=== PATIENT | female | born 1980 | race Caucasian/White ===

== ENCOUNTER 2018-09-20 00:09 | Inpatient (IN) | payer MEDICAID ==
[~2018-09-20] VITALS: Ht 162.6 cm; Wt 84.3 kg
[2018-09-20 00:38] VITALS: Ht 162.6 cm; Wt 84.3 kg
[2018-09-20] MEDS ORDERED: LACTATED RINGER'S 1,000 ML IV PRN (00:42)
[2018-09-20] MEDS ORDERED: CARBOPROST 250 MCG INJ IM PRN ×2 (01:00→14:30)
[2018-09-20] MEDS ORDERED: LIDOCAINE 1% (MPF) 30 ML INJ INJ PRN (01:00)
[2018-09-20] MEDS ORDERED: BUTORPHANOL 2 MG INJ IV PRN (01:00)
[2018-09-20] MEDS ORDERED: OXYTOCIN 30 UNITS/LR 500 ML IV PRN ×2 (01:00→14:30)
[2018-09-20] MEDS ORDERED: MISOPROSTOL 200 MCG TAB PR PRN ×2 (01:00→14:30)
[2018-09-20] MEDS ORDERED: METHYLERGONOVINE 0.2 MG INJ IM PRN ×2 (01:00→14:30)
[2018-09-20] MEDS ORDERED: OXYTOCIN 30 UNITS/LR 500 ML IV SCH ×2 (01:00)
[2018-09-20] MEDS ORDERED: IBUPROFEN 600 MG TAB PO PRN (01:00)
[2018-09-20] MEDS ORDERED: MISOPROSTOL 50 MCG CAPSULE VAG ONE (01:00)
[2018-09-20 01:30] VITALS: BP 126/81; PULSE 68; RESP 20
[2018-09-20] MEDS: LACTATED RINGER'S 1,000 ML IV SCH ×2 (01:58→07:39)
[2018-09-20] MEDS ORDERED: MISOPROSTOL 50 MCG CAPSULE PO PRN (02:30)
[2018-09-20] MEDS: MISOPROSTOL 50 MCG CAPSULE PO PRN ×2 (03:19→07:39)
[2018-09-20] MEDS ORDERED: MINERAL OIL LIGHT 10 ML VIAL TOP ONE (11:00)
--- NOTE | 2018-09-20 14:13 | HP ---
Date/Time of Note Date/Time of Note DATE: 09/20/18 TIME: 14:11 OB - History Hx of Present Chief Complaint: induction of labor Estimated Due Date: Sep 26, 2018 : 3 Para: 2 Spontaneous : 0 Therapeutic : 0 Care: Good Care Ultrasounds: Normal mid trimester US Past Family/Social History * Past Medical, Surgical, Family and Obstetric Histories reviewed from chart. GBS Status: Negative OB Admission Exam Vital Signs Vital Signs Vital Signs Date Temp Pulse Resp B/P (MAP) Pulse Ox O2 O2 Flow FiO2 Time Delivery Rate 09/20/18 98.7 68 20 126/81 Room Air 01:30 (96) Physical Exam HEENT: WNL Heart: Rhythm Normal Lungs: Clear, Equal Abdomen: WNL Extremities: Normal Reflexes: Normal Cervical Dilatation: Fingertip Effacement: 50% Station: -1 Membranes: Intact Heart Rate: 120's Accelerations: Accelerations Present Decelerations: No Decelerations Varibility: Moderate Last 72 hours Lab Results CBC & BMP 09/20/18 01:40 Liver Function Test 09/20/18 01:40 Alanine Aminotransferase (ALT/SGPT) 19 Albumin 3.5 Alkaline Phosphatase 147 H Aspartate Amino Transf (AST/SGOT) 22 Direct Bilirubin 0.00 Total Protein 6.5 OB Assessment/Plan Reason for admission: induction of labor Plan: Induction Induction Method: per Misoprostol Protocol JACE TRIANA MD Sep 20, 2018 14:13
--- NOTE | 2018-09-20 14:15 | LDN ---
Date/Time of Note Date/Time of Note DATE: 09/20/18 TIME: 14:13 Delivery Summary Weeks of Gestation 39 weeks Placenta Delivered: Spontaneously Meconium: none Perineal laceration: 0 Anesthesia type: None Estimated blood loss: 100 Sponge & Needle done & correct: Yes All needle counts correct: Yes Any foreign bodies felt in the: No Delivery Information Sex Sex: male Apgars 1 Minute: 9 5 Minute: 9 Suctioning Nose & mouth suctioned at kain: No Delee suction performed: No Umbilical Cord Umbilical cord with: 3 Vessels Cord presentations: nuchal cord Nuchal cord present X: 1 Cord Blood was obtained: Yes Mother & Baby Disposition Disposition Mom & Baby to Maternity; Good: Yes JACE TRIANA MD Sep 20, 2018 14:15
[2018-09-20 14:20] VITALS: BP 115/66; PULSE 60; RESP 18
[2018-09-20] MEDS: LACTATED RINGER'S 1,000 ML IV* SCH ×2 (14:25→22:25)
[2018-09-20] MEDS ORDERED: WITCH HAZEL/GLYCERIN PAD PR PRN (14:30)
[2018-09-20] MEDS ORDERED: LANOLIN HPA 1 PKT TOP PRN (14:30)
[2018-09-20] MEDS ORDERED: ACETAMINOPHEN 325 MG TAB PO PRN ×2 (14:30)
[2018-09-20] MEDS ORDERED: HYDROCODONE/APAP (5/325) TAB PO PRN (14:30)
[2018-09-20] MEDS ORDERED: ZOLPIDEM 5 MG TAB PO PRN (14:30)
[2018-09-20] MEDS ORDERED: MAGNESIUM HYDROXIDE 30ML CUP PO PRN (14:30)
[2018-09-20] MEDS ORDERED: CEFAZOLIN 1 GM/50 ML (PMX) 50 ML IVPB ONE (14:30)
[2018-09-20] MEDS ORDERED: NA PHOSPHATE/BIPHOS 133 ML ENEMA PR PRN (14:30)
[2018-09-20] MEDS ORDERED: DIPHENHYDRAMINE 25 MG CAP PO PRN (14:30)
[2018-09-20] MEDS ORDERED: BENZOCAINE 20% 56 ML SPRAY TOP PRN (14:30)
[2018-09-20] MEDS ORDERED: METHYLERGONOVINE 0.2 MG TAB PO PRN (14:30)
[2018-09-20] MEDS ORDERED: ONDANSETRON 4 MG INJ IV PRN (14:30)
[2018-09-20 16:20] VITALS: BP 120/64; PULSE 62; RESP 20
[2018-09-20] MEDS: IBUPROFEN 600 MG TAB PO SCH ×2 (17:19→23:38)
[2018-09-20] MEDS ORDERED: AMPICILLIN 2 GM/NS (PMX) 100 ML IV SCH (18:00)
[2018-09-20] MEDS: SENNA/DOCUSATE NA (8.6MG/50MG) TAB PO SCH (21:01)
[2018-09-21 03:40] VITALS: BP 97/53; PULSE 59; RESP 18
[2018-09-21] MEDS: IBUPROFEN 600 MG TAB PO SCH ×3 (05:27→17:47)
[2018-09-21] MEDS: LACTATED RINGER'S 1,000 ML IV* SCH (06:25)
[2018-09-21] MEDS: SENNA/DOCUSATE NA (8.6MG/50MG) TAB PO SCH ×2 (09:59→21:00)
--- NOTE | 2018-09-21 15:44 | PN ---
Date/Time of Note Date/Time of Note DATE: 09/21/18 TIME: 15:43 Assessment/Plan VTE Prophylaxis Risk score (from Ns)>0 risk: 1 SCD applied (from Ns): No SCD contraindicated: low risk/ambulating Pharmacological prophylaxis: NA/contraindicated Pharm contraindication: low risk/ambulating Lines/Catheters [facility] Peripheral IV Assessment/Plan Assessment/Plan POST DAY 1 HOME TOMORROW RETURN TO CLINIC IN 2 WEEKS CONTINUE WITH VITAMINS OD AND FERROUS SULFATE PO TID DIET ADVISED COUNSELED INSTRUCTED CALL OFFICE IF THERE IS ANY PROBLEMS OR CONCERN Result Diagram: 09/21/18 0852 09/20/18 0140 Results 24hrs Laboratory Tests Test 09/21/18 08:52 White Blood Count 12.2 #H Red Blood Count 4.44 Hemoglobin 14.0 Hematocrit 42.5 Mean Corpuscular Volume 95.7 Mean Corpuscular Hemoglobin 31.5 Mean Corpuscular Hemoglobin Concent 32.9 Red Cell Distribution Width 12.9 Platelet Count 203 Mean Platelet Volume 11.2 H Immature Granulocytes % 0.600 H Neutrophils % 81.2 H Lymphocytes % 11.8 L Monocytes % 5.5 Eosinophils % 0.7 Basophils % 0.2 Nucleated Red Blood Cells % 0.0 Immature Granulocytes # 0.070 H Neutrophils # 10.0 H Lymphocytes # 1.4 Monocytes # 0.7 Eosinophils # 0.1 Basophils # 0.0 Nucleated Red Blood Cells # 0.0 Subjective 24 Hr Interval Summary Free Text/Dictation FEELS GOOD, GOOD URINE OUTPUT, GOOD BOWEL MOVEMENT Exam/Review of Systems Exam Vitals Vital Signs Date Temp Pulse Resp B/P (MAP) Pulse Ox O2 O2 Flow FiO2 Time Delivery Rate 09/21/18 98.2 59 18 97/53 (68) Room Air 03:40 Intake and Output 09/20/18 09/20/18 09/21/18 1515:00 23:00 07:00 IntakeIntake Total 120 ml 740 ml OutputOutput Total 486 ml 1400 ml BalanceBalance -366 ml -660 ml Exam VITAL SIGNS STABLE: YES AFEBRILE: YES BREAST NOT ENGORGED, NON-TENDER, NO APPRECIABLE MASS: YES LUNGS CLEAR, NO RALES, WHEEZES, RHONCHI: YES SINUS RHYTHM WITHOUT MURMUR: YES ABDOMEN: NON-TENDER FUNDUS: BELOW UMBILICUS BOWEL SOUNDS: PRESENT UTERUS: FIRM INTACT PERINEUM: YES LOCHIA: LIGHT DEEP TENDON REFLEXES: 0 EXTREMITIES: NO CALF TENDERNESS EDEMA SCALE: NONE Results Results 24hrs Laboratory Tests Test 09/21/18 08:52 White Blood Count 12.2 #H Red Blood Count 4.44 Hemoglobin 14.0 Hematocrit 42.5 Mean Corpuscular Volume 95.7 Mean Corpuscular Hemoglobin 31.5 Mean Corpuscular Hemoglobin Concent 32.9 Red Cell Distribution Width 12.9 Platelet Count 203 Mean Platelet Volume 11.2 H Immature Granulocytes % 0.600 H Neutrophils % 81.2 H Lymphocytes % 11.8 L Monocytes % 5.5 Eosinophils % 0.7 Basophils % 0.2 Nucleated Red Blood Cells % 0.0 Immature Granulocytes # 0.070 H Neutrophils # 10.0 H Lymphocytes # 1.4 Monocytes # 0.7 Eosinophils # 0.1 Basophils # 0.0 Nucleated Red Blood Cells # 0.0 Medications Medication Current Medications Lactated Ringer's 1,000 ml @ 125 mls/hr Q8H IV* ; Start 09/20/18 at 14:25 Methylergonovine Maleate (Methergine) 0.2 mg Q6H PRN PO .VAGINAL BLEED; Start 09/20/18 at 14:30 Ibuprofen (Motrin) 600 mg Q6 PO Last administered on 09/21/18at 12:26; Admin Dose 600 MG; Start 09/20/18 at 18:00 Acetaminophen/ Hydrocodone Bitart (Barling (5/325)) 2 tab Q4H PRN PO .PAIN 6-10; Start 09/20/18 at 14:30 Ondansetron HCl (Zofran Inj) 4 mg Q6H PRN IV NAUSEA/VOMITING; Start 09/20/18 at 14:30 Diphenhydramine HCl (Benadryl) 25 mg Q6H PRN PO .PRUTITUS; Start 09/20/18 at 14:30 Zolpidem Tartrate (Ambien) 5 mg QHS PRN PO .INSOMNIA; Start 09/20/18 at 14:30 Senna/Docusate Sodium (Senokot-S) 1 tab BID PO Last administered on 09/21/18at 09:59; Admin Dose 1 TAB; Start 09/20/18 at 21:00 Magnesium Hydroxide (Milk Of Mag) 30 ml Q12H PRN PO .CONSTIPATION; Start 09/20/18 at 14:30 Sodium Biphosphate/ Sodium Phosphate (Fleet Enema) 133 ml DAILY PRN [place] .CONSTIPATION; Start 09/20/18 at 14:30 Witch Archana/ Glycerin (Tucks Pads) 1 pad BEDSIDE MEDICATION PRN [place] .HEMORRHOID/EPISIOTOMY PAIN Last administered on 09/20/18at 17:19; Admin Dose 40 PAD; Start 09/20/18 at 14:30 Benzocaine (Dermoplast [place]) 1 spray BEDSIDE MEDICATION PRN TOP .HEMMORHOI D/EPISIOTOMY PAIN Last administered on 09/20/18at 17:20; Admin Dose 56 SPRAY; Start 09/20/18 at 14:30 Lanolin (Lanolin Hpa) 1 applic BEDSIDE MEDICATION PRN TOP .NIPPLES Last administered on 09/20/18at 17:19; Admin Dose 1 APPLIC; Start 09/20/18 at 14:30 Measles/Mumps/ Rubella Vaccine Live (Mmr Ii Vaccine) 0.5 ml ONCE ONCE SC* ; Start 09/22/18 at 09:00; Stop 09/22/18 at 09:01 Diphtheria/ Tetanus/Acell Pertussis (Adacel) 0.5 ml ONCE ONCE IM* ; Start 09/22/18 at 09:00; Stop 09/22/18 at 09:01 Varicella Virus Vaccine Live (Varivax Vaccine With Diluent) 1,350 unit ONCE ONCE SC* ; Start 09/22/18 at 09:00; Stop 09/22/18 at 09:01 Acetaminophen (Tylenol Tab) 650 mg Q4H PRN PO .TEMP; Start 09/20/18 at 14:30 Oxytocin/Lactated Ringer's 500 ml @ 0 mls/hr ONCE PRN IV .VAGINAL BLEEDING; Start 09/20/18 at 14:30 Methylergonovine Maleate (Methergine) 0.2 mg ONCE PRN IM .VAGINAL BLEEDING; Start 09/20/18 at 14:30 Carboprost Tromethamine (Hemabate) 250 mcg ONCE PRN IM .VAGINAL BLEEDING; Start 09/20/18 at 14:30 Misoprostol (Cytotec) 1,000 mcg ONCE PRN [place] .VAGINAL BLEEDING; Start 09/20/18 at 14:30 CRESENCIO MALIN MD Sep 21, 2018 15:44
[2018-09-21 15:50] VITALS: BP 133/83; PULSE 67; RESP 18
[2018-09-21 19:30] VITALS: BP 130/80; PULSE 71; RESP 19
[2018-09-22] MEDS: IBUPROFEN 600 MG TAB PO SCH ×3 (00:35→11:50)
[2018-09-22 04:00] VITALS: BP 122/76; PULSE 61; RESP 19
[2018-09-22 08:20] VITALS: BP 124/70; PULSE 82; RESP 18
[2018-09-22] MEDS ORDERED: MEASLES,MUMPS,RUBELLA VACCINE INJ SC* ONE (09:00)
[2018-09-22] MEDS ORDERED: DIPHTH/TET/ACEL PERTUSS (ADULT) 0.5 ML VIAL IM* ONE (09:00)
[2018-09-22] MEDS ORDERED: VARICELLA VACCINE LIVE/PF 1,350 UNIT/0.5 ML ML SC* ONE (09:00)
[2018-09-22] MEDS: SENNA/DOCUSATE NA (8.6MG/50MG) TAB PO SCH (09:14)
--- NOTE | 2018-09-27 11:27 | DELSUM ---
Delivery Summary A-C Datetime Report Generated by CPN: 09/27/2018 11:20 DELIVERY PERSONNEL Embedded Systems Designer: Badgett, Enedelia MATERNAL INFORMATION Delivery Anesthesia: Local; None Medications in Delivery: pitocin Delivery QBL (ml): 100 Placenta Cultured: No Maternal Complications: Other RN Comments: r/o high bile acids like last preg, 38yrs, last baby 3 yrs ago LABOR SUMMARY EDC: 09/26/2018 00:00 No. Babies in Womb: 1 Attempted: No Labor Anesthesia: None LABOR INFORMATION Onset of Labor: 09/20/2018 09:00 Complete Dilatation: 09/20/2018 12:00 Cervical Ripening Agents: Cytotec @ Other Ripening Agents: Cytotec Oxytocin: N/A Group B Beta Strep: Negative Antibiotics # of Doses: 0 Steroids Given: None Reason Steroids Not Administered: Other MEMBRANES Membranes Rupture Method: Spontaneous Rupture of Membranes: 09/13/2018 12:23 Length of Rupture (hr): 168.00 Amniotic Fluid Color: Clear Amniotic Fluid Amount: Small Amniotic Fluid Odor: Normal STAGES OF LABOR Stage 1 hr: 3 Stage 1 min: 0 Stage 2 hr: 0 Stage 2 min: 23 Stage 3 hr: 0 Stage 3 min: 2 Total Time in Labor hr: 3 Total Time in Labor min: 25 VAGINAL DELIVERY Episiotomy: None Laceration Type: None Initial Vag Sponge Count: 10 Final Vag Sponge Count: 10 Initial Vag Sharps Count: 2 Final Vag Sharps Count: 2 Sponge Count Correct: Yes Sharps Count Correct: Yes BABY A INFORMATION Delivery Date/Time: 09/20/2018 12:23 Method of Delivery: Vaginal Born in Route : No : N/A Forceps: N/A Vacuum Extraction: N/A Shoulder Dystocia : N/A SHOULDER DYSTOCIA BABY A Infant Delivery Date/Time: 09/20/2018 12:23 PRESENTATION/POSITION BABY A Presentation: Cephalic Cephalic Presentation: Vertex Vertex Position: Left Occipital Anterior Breech Presentation: N/A PLACENTA INFORMATION BABY A Placenta Delivery Time : 09/20/2018 12:25 Placenta Method of Delivery: Spontaneous Placenta Status: Delivered SCORES BABY A Heart Rate 1 min: >100 bpm Resp Effort 1 min: Good Cry Reflex Irritability 1 min: Cough/Sneeze/Pulls Away Muscle Tone 1 min: Active Motion Color 1 min: Body [place], Extremit Blue Resuscitation Effort 1 min: Tactile Stimulation; Oxygen SCORE 1 MIN: 9 Heart Rate 5 min: >100 bpm Resp Effort 5 min: Good Cry Reflex Irritability 5 min: Cough/Sneeze/Pulls Away Muscle Tone 5 min: Active Motion Color 5 min: Body [place], Extremit Blue Resuscitation Effort 5 min: Tactile Stimulation; Oxygen SCORE 5 MIN: 9 INFANT INFORMATION BABY A Gestational Age at Delivery: 39.1 Gestational Status: Full Term- 39- 40.6 Weeks Infant Outcome : Liveborn Infant Condition : Stable Sex: Male IDENTIFICATION/MEDS BABY A ID Band Number: [id number] ID Band Location: Right Leg; Left Arm Sensor Applied: Yes Sensor Number: [id number] Sensor Location : Cord Clamp Vitamin K Given : Not Given Erythromycin Given: Not Given CORD INFORMATION BABY A No. Cord Vessels: 3 Nuchal Cord : Around Neck x1, Loose Cord Blood Taken: Yes Suction: Mouth; Nose ASSESSMENT BABY A Infant Complications: Multiple Variable Decels; Other Infant Complications- Other: R/O ELEVATED BILE ACIDS, Physical Findings at Delivery: Within Normal Limits Respirations: Appears Normal Supervisor Ble[employer] Plant/ALS Called : Yes Infant Care By: JEANETTE QUINN Transferred To: Remains with Mother
== END 2018-09-22 14:05 | disposition home or self-care (01) | DRG 807 ==
LOC: OBT 00:09 → L-D 00:09 → OBT 00:35 → PP1 14:23
PROVIDERS: ADMIT Obstetrics & Gynecology; ATTEND Obstetrics & Gynecology
PROC: 10E0XZZ Delivery of Products of Conception, External Approach (ICD-10-PCS; principal; 2018-09-20)
DX: O69.81X0 Labor and delivery complicated by cord around neck, without compression, not applicable or unspecified (principal); Z37.0 Single live birth; Z3A.39 39 weeks gestation of pregnancy
CPT/HCPCS: 76815; 80053; 81001; 85025; 85610; 85730; 86592; 86850; 86900; 86901; 90716; G0463; J0690; J2590; J7120